=== PATIENT | female | born 2000 | race Caucasian/White ===

== ENCOUNTER 2020-05-23 11:57 | Outpatient (CLI) | payer BC ==
--- NOTE | 2020-05-23 12:20 | RAD ---
EXAM: XR Abdomen 2 View DATE: 05/23/2020 11:59 AM INDICATION: Abdominal plane with bloating and weight loss; history of IBS COMPARISON: None. FINDING: There is an IUD within the lower central pelvis. Bowel gas pattern is unobstructed. There i s a mild amount of retained stool within the colon. There is mild rightward curvature of the thoracolumbar spine. Lung bases are clear. No suspicious calcifications are evident. No acute osseous abnormality is noted. IMPRESSION: 1. Mild amount of retained stool within colon. 2. IUD. 3. Mild thoracolumbar scoliosis.
== END 2020-05-23 11:58 | disposition home or self-care (01) ==
LOC: SCSRAD 11:57
PROVIDERS: ATTEND Internal Medicine Gastroenterology
DX: K58.9 Irritable bowel syndrome, unspecified (principal); R19.4 Change in bowel habit; K63.4 Enteroptosis; R14.0 Abdominal distension (gaseous); F41.9 Anxiety disorder, unspecified; R19.5 Other fecal abnormalities; M41.9 Scoliosis, unspecified
CPT/HCPCS: 74019